=== PATIENT | male | born 1955 | race Caucasian/White ===

== ENCOUNTER 2017-08-31 10:21 | Outpatient (CLI) | payer BC ==
[2017-08-31 11:10] LABS: eGFR (African) > 60; eGFR (Non-African) > 60
== END 2017-08-31 10:23 ==
LOC: LAB 10:21
PROVIDERS: ATTEND Family Medicine
DX: Z00.00 Encounter for general adult medical examination without abnormal findings (principal)
CPT/HCPCS: 36415; 80053; 80061; 84153

== ENCOUNTER 2018-06-18 10:38 | Outpatient (CLI) | payer BC ==
[2018-06-18 11:57] LABS: eGFR (Non-African) > 60
== END 2018-06-18 10:45 ==
LOC: LAB 10:38
PROVIDERS: ATTEND Family Medicine
DX: I10 Essential (primary) hypertension (principal)
CPT/HCPCS: 36415; 80053; 80061

== ENCOUNTER 2018-10-14 08:45 | Outpatient (CLI) | payer BC | END 2018-10-14 08:48 | LOC: LAB 08:45 | PROVIDERS: ATTEND Family Medicine | DX: M25.50 Pain in unspecified joint (principal) | CPT/HCPCS: 36415; 85651; 86140; 86431 ==